=== PATIENT | female | born 1965 | race Caucasian/White ===

== ENCOUNTER 2024-03-19 18:08 | Emergency (ER) | payer OTHER, SELFPAY ==
[2024-03-19 18:13] VITALS: BP 201/114
[2024-03-19 20:09] VITALS: BP 193/93
--- NOTE | 2024-03-19 20:30 | ED.GENMED ---
History of Present Illness
General
Chief Complaint: Blood Pressure Problem
Source: patient and family (Daughter)
Exam Limitations: none
Time Seen by Provider: 03/19/24 20:18
Nursing documentation reviewed up to this point in time: agreed with
Travel History
Have you had any contact with someone who has COVID-19?: No
Do you have any symptoms of coronavirus? Fever > 100 degrees, chills, cough, shortness of breath, sore throat, loss of taste or smell, muscle aches, or headache?: No
History of Present Illness
History of Present Illness:
58-year-old female with a past medical history of hypertension, asthma who presents to the emergency department for evaluation of hypertension. Patient reports that she has long history of hypertension has been on blood pressure medication for 20+
years. She is currently on amlodipine 10 mg daily and lisinopril 40 mg daily. She has not had any very recent adjustments; most recent adjustment was 6 months ago when lisinopril was increased from 20 mg daily to 40 mg daily. Patient reports that
she had a routine appointment with her primary doctor on Saturday and at her appointment her blood pressure was elevated to 150/90. Her primary doctor advised her to check her blood pressure over the next few weeks to keep track of it and they would
decide whether to adjust her medications based on this. Patient says that today she was checking her blood pressure and it was elevated and she continued to check it and it continued to trend upwards as high as the 190s and so she came to the
emergency room to be assessed. She denies any symptoms including headache, chest pain, shortness of breath, visual changes, focal weakness or numbness in her extremities. She reports compliance with her medications without any missed doses. She
admits that there may be a component of anxiety driving her blood pressure as she is quite anxious about it.
Review of Systems
Review of Systems
All Other Systems: ROS reviewed and negative except as documented in HPI and ROS
Constitutional: Denies fever or chills
Respiratory: Denies cough or trouble breathing
Cardiac: Denies chest pain or palpitations
ABD/GI: Denies abdominal pain, nausea or vomiting
: Denies flank pain
Musculoskeletal: Denies neck pain or back pain
Neurological: Denies dizzy, headache, weakness or numbness
Phy Exam
Physical Exam
Physical Exam:
General: Awake, alert, oriented x3; somewhat anxious but no acute distress
Head: Normocephalic, atraumatic
Eyes: Conjunctiva normal, EOMI, pupils equal round and reactive to light bilaterally
Throat: Airway intact, handling secretions
Neck: Trachea midline, supple without meningismus
Lungs: Clear to auscultation bilaterally, no wheezing, rales, rhonchi
Heart: Regular rate and rhythm, no murmurs, gallops, or rubs
Abd: Soft, non distended, nontender
Neuro: Cranial nerves grossly intact, speech fluid, motor and sensory function intact upper and lower extremities
Skin: no rash
Extremities: No edema in extremities, equal pulses in all extremities
Scores
Heart Failure Risk
Heart Failure Risk Score: Not Applicable
Heart Score for Chest Pain Patients
STEMI patient?: Not applicable
Withdrawal Assessment of Alcohol
Withdrawal Assessment Completed?: Not applicable
Course
Orders/Labs/Results
Orders:
Orders
03/19/24 20:19
Electrocardiogram (*1) Urgent
Reason for Study: Hypertension, Benign
EKG- Treatment ONCE
03/19/24 20:44
Complete Blood Count/With Diff Urgent
Comprehensive Metabolic Panel Urgent
Troponin I Urgent
Abnormal Lab Results
03/19/24
20:44
Absolute Lymphs (auto) 0.9 L 10^3/uL
(1.2-3.4)
Lymphocytes % 18.0 L %
(20.5-51.1)
BUN 22 H mg/dl
(7-17)
Glucose 122 H mg/dl
(70-99)
Calcium 10.7 H mg/dl
(8.4-10.2)
03/19/24 20:44
03/19/24 20:44
Vital Signs
Initial and Last Documented VS:
Initial Vital Signs
Temp Pulse Resp BP Pulse Ox
36.8 C 116 17 201/114 100
03/19/24 18:13 03/19/24 18:13 03/19/24 18:13 03/19/24 18:13 03/19/24 18:13
Last Documented Vital Signs
Temp Pulse Resp BP Pulse Ox
36.8 C 89 13 148/93 96
03/19/24 18:13 03/19/24 21:00 03/19/24 21:00 03/19/24 21:00 03/19/24 21:00
MDM/Problems Addressed
Differential Diagnosis Includes:
Asymptomatic hypertension
MDM/Problems Addressed:
58-year-old female presents with asymptomatic hypertension. She is hypertensive and tachycardic in triage. Vital signs improved but still hypertensive on my assessment to 190s over 100. Fortunately she has no symptoms and appears quite well on
exam otherwise. Will plan to check screening blood work, EKG. No clear indication for urgent lowering of blood pressure here in the emergency room I do suspect that there is some component of anxiety at [facility] monitor blood pressure here but
hold on additional antihypertensives for the time being. Reassess after the above.
Labs reviewed: CBC and CMP unremarkable. Troponin undetectable. EKG no concerning changes. Clinical reassessment blood pressure significantly improved with simple reassurance now at 148/93. Will hold on further adjustments to her
antihypertensive regimen deferred to primary doctor. Advised to continue to monitor blood pressure at home. She is comfortable this plan. Spoke about return precautions all questions answered.
Chronic conditions affecting care:
Hypertension
Acute Exacerbation and/or Progression of Chronic Illness:
Acutely hypertensive
Acute Exacerbation and/or Progression of Chronic Illness: HTN
*Pulse Oximetry
Patient hypoxic: no
*EKG
Interpreted by ED Provider?: Yes
Heart Rate: 95
Rate: normal
Rhythm: sinus
[place]: normal axis
Interval: normal interval
QRS Pattern: normal QRS
Ischemia: no ischemia
*Critical Care Note
Total Time (30-74mins, 75-104mins- exclusive of procedures): Not Applicable
Data Reviewed
Source: patient and family (Daughter)
ED Attending Note
-
Portions of this chart may have been created with voice recognition software.� Occasional wrong word or��sound alike� substitutions may have occurred due to the inherent limitations of voice recognition software.
Discharge Plan
Departure
Patient Disposition: Home (Routine Discharge)
Date of Disposition: 03/19/24
Time of Disposition: 21:25
Patient with high blood pressure during this ER visit?: Yes
Discharge Problem:
Hypertension
Instructions: BLOOD PRESSURE
Activity Restrictions/Additional Instructions:
Thank you for visiting the Emergency Department at [facility].
1. Please schedule a follow up appointment as directed. Call first thing tomorrow morning to make an appointment.
2. If indicated, please take your medications as instructed and indicated on discharge paperwork.
3. If any of your symptoms do not improve, or persist, or become more severe within 6-12 hours, please return to the emergency department for further care.
4. Please return to the emergency department if you develop a headache, neck pain/stiffness, fever greater than 100.4F, chest pain, shortness of breath, persistent nausea, vomiting, slurred speech, difficulty walking, numbness/tingling, weakness,
signs of infection or any other symptoms that are worrisome to you.
Please call [phone] if you have any questions.
Interventions
Interventions:
*Risk Screen - Suicide Last Done: 03/19/24 18:13
*General Assessment Last Done: 03/19/24 18:13
*Neglect/Abuse Screening Last Done: 03/19/24 18:13
*ED COVID-19 Vaccine History Last Done: 03/19/24 18:13
Discharge Date and Time
Print Language: [id number]
[2024-03-19 20:44] VITALS: BP 154/95
[2024-03-19 20:54] LABS: % Basophils 0.8 % (0-2); % Eosinophils 1.4 % (0-6); % Immature Granulocytes 0.2 % (0-0.5); % Monocytes 5.8 % (1.7-9.3); % Neutrophils 73.8 % (42.2-75.2); Absolute Eosinophils 0.1 10^3/uL (0-0.7); Absolute Lymphocytes 0.9 10^3/uL (1.2-3.4); Absolute Monocytes 0.3 10^3/uL (0.1-0.6); Absolute Neutrophils 3.6 10^3/uL (1.4-6.5); Hematocrit 41.1 % (37.0-47.0); Hemoglobin 13.8 g/dL (12.0-16.0); Mean Corp Hgb Conc. 33.6 g/dL (33.0-37.0); Mean Corpuscular Hgb 29.9 pg (27.0-31.0); Mean Platelet Volume 9.3 fL (7.4-10.4); Nucleated Red Blood Cells % 0 %; Platelet Count 231 10^3/uL (130-400); Red Blood Cell Count 4.62 10^6/uL (4.20-5.40); Red Cell Dist. Width 12.9 % (11.5-14.5); White Blood Cell Count 4.8 10^3/uL (4.8-10.8)
[2024-03-19 21:00] VITALS: BP 148/93
[2024-03-19 21:10] LABS: ALT (SGPT) 20 U/L (0-35); AST (SGOT) 25 U/L (14-36); Albumin 4.9 g/dl (3.5-5.0); Alkaline Phosphatase 94 U/L (38-126); Blood Urea Nitrogen 22 mg/dl (7-17); Calcium 10.7 mg/dl (8.4-10.2); Carbon Dioxide 24 mmol/L (22-30); Chloride 101 mmol/L (98-107); Glucose 122 mg/dl (70-99); Sodium 137 mmol/L (135-145); Total Bilirubin 0.5 mg/dl (0.2-1.3); Total Protein 7.5 g/dl (6.3-8.2); eGFR > 60.00
[2024-03-19 21:20] LABS: Troponin I < 0.012 ng/ml
== END 2024-03-19 22:06 | disposition home or self-care (01) ==
LOC: EMR 18:08
PROVIDERS: EMERGENCY PHYSICIAN Emergency Medicine
DX: I10 Essential (primary) hypertension (principal)
CPT/HCPCS: 99284; 80053; 84484; 85025; 93005